=== PATIENT | female | born 1975 | race Hispanic/Latino ===

== ENCOUNTER → 2022-03-28 | Outpatient (CLI) | payer OTHER | END | disposition home or self-care (01) | LOC: SHCH 08:39 | PROVIDERS: ATTEND Internal Medicine Cardiovascular Disease | DX: R55 Syncope and collapse (principal) | CPT/HCPCS: 93306 ==

== ENCOUNTER 2024-12-12 20:01 | Emergency (ER) | payer BC, OTHER ==
[~2024-12-12] VITALS: Ht 165.1 cm; Wt 117.9 kg
[2024-12-12 20:31] LABS: IMMATURE GRANULOCYTE ABSOLUTE 0.02 K/uL (0-1); NUCLEATED RED BLOOD CELLS 0.0 % (0.0-0.19); PLATELET COUNT (AUTO) 267 K/uL (130-400); RED BLOOD CELL COUNT(AUTO) 4.12 MIL/uL (4.00-5.50); RED CELL DISTRIBUTION WIDTH 14.5 % (11.0-15.5); WHITE BLOOD COUNT (AUTO) 7.8 K/uL (4.8-10.8)
[2024-12-12 20:39] LABS: CREATININE 0.7 mg/dL (0.5-1.0); GLOMERULAR FILTR. RATE CALC 107.0 mL/min (>90); GLUCOSE,RANDOM 119.0 mg/dL (70-105); SODIUM SERUM 144.0 mmol/L (136-145); UREA NITROGEN, BLOOD 10.0 mg/dL (7-18)
[2024-12-12] MEDS: 0.9%NACL 1000ML 1,000 ML IV ONE (20:59)
[2024-12-12 21:00] VITALS: TEMP 99.7
[2024-12-12] MEDS: FAMOTIDINE 20MG VIAL IV ONE (21:00)
[2024-12-12 21:34] LABS: RAPID GROUP A STREP negative (NEGATIVE)
[2024-12-12 21:44] LABS: INFLUENZA TYPE A Negative For Type A (NEGATIVE); INFLUENZA TYPE B Negative For Type B (NEGATIVE)
[2024-12-12 21:57] LABS: SARS-CoV-2, RNA, NAAT POSITIVE SARS CoV-2 (NEGATIVE)
[2024-12-12] MEDS ORDERED: METH4TAB3 PO (22:39)
[2024-12-12] MEDS ORDERED: KETO10TA2 PO (22:39)
--- NOTE | 2024-12-12 22:40 | ERN ---
General Chief Complaint: Allergic Reaction Stated Complaint: BEE STING, YESTERDAY, X 3 RT LEG Time Seen by MD: 20:11 Time Seen by Midlevel: 20:11 Source: patient History of Present Illness Initial Comments The patient is a 49-year-old female presenting to the emergency department for evaluation of multiple bee stings and a sore throat that started today. The bee stings occurred yesterday. She applied topical hydrocortisone with little to no relief. Today she reports increased pain and a feeling of generalized body weakness along with a sore throat so she decided to come in for further evaluation. Denies any other symptoms Allergies: Coded Allergies: No Known Allergies (Unverified Allergy, Unknown, 12/12/24) Past Medical History Past Medical History: No Pertinent History Past Surgical History: BTL ROS Dictation CONSTITUTIONAL: Negative except for HPI HEAD/FACE: Negative except for HPI EENT: Negative except for HPI RESPIRATORY: Negative except for HPI GASTROINTESTINAL/ABDOMINAL: Negative except for HPI GENITOURINARY: Negative except for HPI MUSCULOSKELETAL: Negative except for HPI INTEGUMENTARY: Negative except for HPI NEUROLOGICAL/PSYCH: Negative except for HPI HEMATOLOGIC/LYMPHATIC: Negative except for HPI All Systems Negative, Except as noted above. 13 point review of systems assessed and all negative except for above. Physical Exam Physical Exam Dictation Vital Signs reviewed General Appearance: Alert, oriented x 3, no acute distress, well developed, nourished. Head and Face: non-traumatic. Eyes: PERRL, pink conjunctivas, eyelid no trauma, anterior chamber with arcus senilis. Ears: Pinnas intact and no signs of trauma or erythema ear canals clear and no discharge TM no erythema Nose: No discharge, no bleeding. Oropharynx: Mouth normal, tongue pink, pharynx clear,no erythema, tonsils no exudates, no abscesses noted, mucous membrane moist Neck: Supple, non-tender, no thyromegaly, no masses, no JVD, no bruits Breast:Deferred Chest:No tenderness, no crepitus, no paradoxical movement, no retractions Lungs:Clear, well-ventilated, symmetric, no rales, no wheezing, no rhonchi, no stridor, good breath sounds bilaterally Heart: Regular rate, regular rhythm, no murmur, no gallops Vascular: no peripheral edema, Abdomen: Soft, positive bowel sounds, nondistended, no guarding, nontender, no rebound, no masses no hepatomegaly, no splenomegaly, no 's sign, no hernias. Rectal: Deferred Genital: Deferred Neurological: Normal speech, motor function intact, sensory function intact Musculoskeletal: Neck nontender, full range of motion, back nontender, full range of motion, Extremities: nontender, full range of motion Skin: Multiple bee stings to right lower extremity Lymphatic: Deferred Results Laboratory and Microbiology Lab and Micro Result Laboratory Tests Test 12/12/24 20:25 12/12/24 21:17 White Blood Count 7.8 K/uL (4.8-10.8) Red Blood Count 4.12 MIL/uL (4.00-5.50) Hemoglobin 12.1 g/dL (12.0-16.0) Hematocrit 37.7 % (36-48) Mean Corpuscular Volume 91.5 fL (79-99) Mean Corpuscular Hemoglobin 29.4 pg (27.0-33.0) Mean Corpuscular Hemoglobin Concent 32.1 g/dL (32.0-36.0) Red Cell Distribution Width 14.5 % (11.0-15.5) Platelet Count 267 K/uL (130-400) Mean Platelet Volume 10.6 fL (7.5-10.5) H Immature Granulocyte % (Auto) 0.3 % (0-1) Neutrophils (%) (Auto) 65.6 % (40.0-77.0) Lymphocytes (%) (Auto) 23.1 % (21.0-51.0) Monocytes (%) (Auto) 9.7 % (3.0-13.0) Eosinophils (%) (Auto) 0.9 % (0.0-8.0) Basophils (%) (Auto) 0.4 % (0.0-5.0) Neutrophils # (Auto) 5.2 K/uL (1.8-7.7) Lymphocytes # (Auto) 1.8 K/uL (1.0-4.8) Monocytes # (Auto) 0.8 K/uL (0.1-1.0) Eosinophils # (Auto) 0.07 K/uL (0.00-0.70) Basophils # (Auto) 0.03 K/uL (0.00-0.20) Absolute Immature Granulocyte (auto 0.02 K/uL (0-1) Nucleated Red Blood Cells 0.0 % (0.0-0.19) Sodium Level 144 mmol/L (136-145) Potassium Level 3.7 mmol/L (3.5-5.1) Chloride Level 107 mmol/L (101-111) Carbon Dioxide Level 26 mmol/L (21-32) Blood Urea Nitrogen 10 mg/dL (7-18) Creatinine 0.7 mg/dL (0.5-1.0) Glomerular Filtration Rate Calc 107 mL/min (>90) Random Glucose 119 mg/dL (70-105) H Total Calcium 8.7 mg/dL (8.5-10.1) Influenza Type A Antigen Negative For Type A Influenza Type B Antigen Negative For Type B SARS-CoV-2, RNA, NAAT POSITIVE SARS CoV-2 Group A Streptococcus Rapid negative (NEGATIVE) Labs Reviewed?: Yes MDM MDM: Differential diagnosis: Allergic reaction, bee stings, viral syndrome There are no social concerns with this patient. Prescription drug management Prescriptions will include: Medrol pack, ketorolac Medical management and examination interpretation discussions were had by me with other qualified healthcare professionals as indicated for the patient's care. ED Course Orders Procedure Category Date Status Time Cbc With Differential LAB 12/12/24 Complete 20:15 Basic Metabolic Panel LAB 12/12/24 Complete 20:15 0.9%Nacl 1000ml (Ns PHA 12/12/24 Complete 1000ml) 20:30 Diphenhydramine Hcl PHA 12/12/24 Complete (Benadryl Inj) 20:30 Methylprednisolone PHA 12/12/24 Complete Succ 125mg (Solu-Medr 20:30 Famotidine 20mg Vial PHA 12/12/24 Complete (Pepcid 20mg Vial) 20:30 Acetaminophen 500mg PHA 12/12/24 Complete Tab (Tylenol 500mg T 21:00 Covid Rna Naat LAB 12/12/24 Complete 20:43 Influenza Type A & B, LAB 12/12/24 Complete Rapid 20:43 Rapid (Group A Strep) LAB 12/12/24 Complete 20:43 Current Medications Medications (Trade) Dose Ordered Sig/Ellen Route PRN Reason Start Time Stop Time Status Last Admin Dose Admin Acetaminophen (TYLenol 500MG TAB) 1,000 mg ONCE ONCE PO 12/12/24 21:00 12/12/24 21:01 DC 12/12/24 21:00 Diphenhydramine HCl (BENAdryl INJ) 50 mg ONCE ONCE IM 12/12/24 20:30 12/12/24 20:31 DC 12/12/24 21:00 Famotidine (Pepcid 20mg Vial) 20 mg ONCE ONCE IV 12/12/24 20:30 12/12/24 20:31 DC 12/12/24 21:00 Methylprednisolone Sodium Succinate (Solu-medROL 125MG) 125 mg ONCE ONCE IVP 12/12/24 20:30 12/12/24 20:31 DC 12/12/24 21:00 Sodium Chloride 1,000 ml @ 0 mls/hr ONCE ONCE IV 12/12/24 20:30 12/12/24 20:31 DC 12/12/24 20:59 Vital Signs Date Time Temp Pulse Resp B/P (MAP) Pulse Ox O2 Delivery O2 Flow Rate FiO2 12/12/24 22:13 99.3 97 19 160/84 99 Room Air* 0 21 12/12/24 21:19 99.7 90 19 189/89 99 Room Air* 0 21 12/12/24 21:00 99.7 12/12/24 20:02 99.7 98 20 188/87 100 Room Air DX & DISP Disposition: Discharge Departure Impression: Primary Impression: Bee sting Additional Impression: COVID-19 Condition: Stable Scripts Ketorolac Tromethamine (Ketorolac Tromethamine) 10 Mg Tablet 1 TAB PO TID for pain for 5 Days, #15 TAB 0 Refills Prov: JOSE A DUBOSE 12/12/24 Methylprednisolone (Medrol) 4 Mg Tab.ds.pk 1 TAB PO AD for 6 Days, #21 TAB 0 Refills 6 on day 1 then reduce by one tablet daily until gone Prov: JOSE A DUBOSE 12/12/24 Referrals: YOLANDA MUNOZ MD (PCP) Time of Disposition: 22:38 I have reviewed the case, and I agree with, Diagnosis and Plan I performed the substantive portion of the visit. I have reviewed and personally made and approve the management plan that is documented in the note by myself or the BIANKA. I acknowledge for responsibility for the patient's management plan. JOSE A DUBOSE Dec 12, 2024 22:40
[2024-12-12 22:51] VITALS: BP 154/72; PULSE 94; RESP 19; TEMP 99; O2SAT 99
== END 2024-12-12 23:11 | disposition home or self-care (01) ==
LOC: EDH 20:01
DX: T63.441A Toxic effect of venom of bees, accidental (unintentional), initial encounter (principal); U07.1 COVID-19; Z98.51 Tubal ligation status; Y92.89 Other specified places as the place of occurrence of the external cause
CPT/HCPCS: 99284; 96374; 87635; 96361; 96375; 80048; 85025; 87880; 87804 ×2; 36415; 96372; J2919; J1200; J3490; J7030